=== PATIENT | female | born 1990 | race Caucasian/White ===

== ENCOUNTER 2016-12-02 17:53 | Emergency (ER) | payer MEDICAID ==
[2016-12-02 19:30] LABS: BASOPHIL % 0.2 % (0-2)
[2016-12-02 19:31] LABS: PLATELET COUNT 128 x10^3mcL (130-400); RED CELL DISTRIBUTION WIDTH 15.6 % (11.5-14.5)
[2016-12-02 20:12] VITALS: BP 108/64
== END 2016-12-02 20:12 | disposition left against medical advice (07) ==
LOC: ED 17:53
PROVIDERS: Emergency Medicine
DX: N93.9 Abnormal uterine and vaginal bleeding, unspecified (principal); N91.2 Amenorrhea, unspecified; K80.20 Calculus of gallbladder without cholecystitis without obstruction; R94.5 Abnormal results of liver function studies

== ENCOUNTER 2018-05-04 00:46 | Emergency (ER) | payer MEDICAID ==
[~2018-05-04] VITALS: Ht 160 cm; Wt 62.6 kg
[2018-05-04 00:55] VITALS: Ht 160 cm; Wt 62.6 kg
[2018-05-04 03:49] VITALS: BP 104/65
== END 2018-05-04 03:49 | disposition home or self-care (01) ==
LOC: ED 00:46
DX: G43.909 Migraine, unspecified, not intractable, without status migrainosus (principal); R20.2 Paresthesia of skin; G51.0 Bell's palsy; Z97.5 Presence of (intrauterine) contraceptive device

== ENCOUNTER 2018-08-30 13:04 | Emergency (ER) | payer MEDICAID ==
[~2018-08-30] VITALS: Ht 160 cm; Wt 64.9 kg
[2018-08-30 13:18] VITALS: BP 111/61; Ht 160 cm; Wt 64.9 kg
[2018-08-30 14:36] LABS: CALCIUM 9.2 mg/dL (8.5-10.1); CARBON DIOXIDE 26.3 mmol/L (21-32); CHLORIDE SERUM 102 mmol/L (98-107); CREATININE SERUM 0.6 mg/dL (0.6-1.0); GFR1 > 60 mL/min; GLUCOSE SERUM 80 mg/dL (74-106); POTASSIUM SERUM 4.1 mmol/L (3.5-5.1); SODIUM SERUM 138 mmol/L (136-145)
== END 2018-08-30 15:03 | disposition home or self-care (01) ==
LOC: ED 13:04
PROVIDERS: Emergency Medicine
DX: G44.209 Tension-type headache, unspecified, not intractable (principal); G51.0 Bell's palsy; F17.200 Nicotine dependence, unspecified, uncomplicated; Z97.5 Presence of (intrauterine) contraceptive device
CPT/HCPCS: 99406

== ENCOUNTER 2018-09-11 19:32 | Emergency (ER) | payer MEDICAID ==
[~2018-09-11] VITALS: Ht 160 cm; Wt 64.9 kg
[2018-09-11 19:38] VITALS: BP 112/62; Ht 160 cm; Wt 64.9 kg
== END 2018-09-11 21:33 | disposition home or self-care (01) ==
LOC: ED 19:32
DX: J40 Bronchitis, not specified as acute or chronic (principal); Z98.890 Other specified postprocedural states

== ENCOUNTER 2019-02-09 23:57 | Emergency (ER) | payer MEDICAID ==
[~2019-02-09] VITALS: Ht 160 cm; Wt 67.6 kg
[2019-02-10 00:07] VITALS: Ht 160 cm; Wt 67.6 kg
[2019-02-10 01:38] VITALS: BP 104/70
== END 2019-02-10 01:38 | disposition home or self-care (01) ==
LOC: ED 23:57
DX: R06.02 Shortness of breath (principal); F15.10 Other stimulant abuse, uncomplicated; Z98.890 Other specified postprocedural states

== ENCOUNTER 2019-07-25 06:48 | Emergency (ER) | payer MEDICAID ==
[~2019-07-25] VITALS: Ht 160 cm; Wt 70.8 kg
[2019-07-25 06:49] VITALS: Ht 160 cm; Wt 70.8 kg
[2019-07-25 07:22] LABS: BASOPHIL % 0.1 % (0-2); PLATELET COUNT 247 x10^3mcL (130-400)
[2019-07-25 07:25] LABS: RED CELL DISTRIBUTION WIDTH 15.5 % (11.5-14.5)
[2019-07-25 07:31] LABS: CALCIUM 8.8 mg/dL (8.5-10.1); CARBON DIOXIDE 25.9 mmol/L (21-32); CHLORIDE SERUM 101 mmol/L (98-107); CREATININE SERUM 0.6 mg/dL (0.6-1.0); GFR1 > 60 mL/min; GLUCOSE SERUM 100 mg/dL (74-106); POTASSIUM SERUM 3.8 mmol/L (3.5-5.1); SODIUM SERUM 135 mmol/L (136-145)
[2019-07-25 07:36] LABS: ALBUMIN 3.7 g/dL (3.4-5.0); ALKALINE PHOSPHATASE 84 U/L (46-116); ALT/SGPT 23 U/L (14-59); AST/SGOT 15 U/L (15-37); BILIRUBIN TOTAL 0.3 mg/dL (0.20-1.00); TOTAL PROTEIN, SERUM 7.8 g/dL (6.4-8.2)
[2019-07-25 09:38] VITALS: BP 99/69
== END 2019-07-25 09:38 | disposition home or self-care (01) ==
LOC: ED 06:48
PROVIDERS: Emergency Medicine
DX: R10.31 Right lower quadrant pain (principal); Z98.890 Other specified postprocedural states
CPT/HCPCS: J1885; J7030

== ENCOUNTER 2020-01-05 16:04 | Inpatient (IN) | payer MEDICAID ==
[~2020-01-05] VITALS: Ht 160 cm; Wt 74.1 kg
[2020-01-05 16:17] VITALS: Ht 160 cm; Wt 74.1 kg
[2020-01-05 16:58] LABS: BASOPHIL % 0.3 % (0-2); PLATELET COUNT 252 x10^3mcL (130-400); RED CELL DISTRIBUTION WIDTH 16.4 % (11.5-14.5)
[2020-01-05 17:47] LABS: ERYTHROCYTE SED RATE 46 mm/hr (0-20)
[2020-01-05 18:36] LABS: C REACTIVE PROTEIN 7.4 mg/dL (<=0.9); CALCIUM 8.4 mg/dL (8.5-10.1); CARBON DIOXIDE 25.3 mmol/L (21-32); CHLORIDE SERUM 100 mmol/L (98-107); CREATININE SERUM 0.8 mg/dL (0.6-1.0); GFR1 > 60 mL/min; GLUCOSE SERUM 99 mg/dL (74-106); POTASSIUM SERUM 3.5 mmol/L (3.5-5.1); SODIUM SERUM 136 mmol/L (136-145)
[2020-01-05 20:05] VITALS: BP 99/63
[2020-01-05 21:54] LABS: CHOLESTEROL/HDL RATIO 2.6
[2020-01-06 02:19] VITALS: BP 100/58
[2020-01-06 04:59] VITALS: BP 90/49
[2020-01-06 08:11] VITALS: BP 110/69
[2020-01-06 08:52] LABS: BASOPHIL % 0.4 % (0-2); PLATELET COUNT 200 x10^3mcL (130-400)
[2020-01-06 09:29] LABS: RED CELL DISTRIBUTION WIDTH 16.2 % (11.5-14.5)
[2020-01-06 10:04] LABS: CALCIUM 7.7 mg/dL (8.5-10.1); CARBON DIOXIDE 22.7 mmol/L (21-32); CHLORIDE SERUM 101 mmol/L (98-107); CREATININE SERUM 0.6 mg/dL (0.6-1.0); GFR1 > 60 mL/min; GLUCOSE SERUM 71 mg/dL (74-106); MAGNESIUM 2.2 mg/dL (1.8-2.4); PHOSPHOROUS 2.3 mg/dL (2.5-4.9); POTASSIUM SERUM 3.6 mmol/L (3.5-5.1); SODIUM SERUM 135 mmol/L (136-145)
[2020-01-06 11:57] VITALS: BP 95/60
[2020-01-06 16:13] VITALS: BP 91/59
[2020-01-06] MEDS ORDERED: KEFLEX500 M1 PO (16:46)
[2020-01-06] MEDS ORDERED: ULTRAM50 MG PO (16:47)
== END 2020-01-06 19:00 | disposition left against medical advice (07) | DRG 720 ==
LOC: ED 16:04 → DU 18:41
PROVIDERS: Emergency Medicine; ADMIT Family Medicine; ATTEND Family Medicine
DX: A41.9 Sepsis, unspecified organism (principal); D64.9 Anemia, unspecified; L03.317 Cellulitis of buttock; Z53.29 Procedure and treatment not carried out because of patient's decision for other reasons; L02.31 Cutaneous abscess of buttock
CPT/HCPCS: G0378; J1885; J2270; J2405; J2543; J3490; Q0092; Q9967

== ENCOUNTER 2020-06-13 00:02 | Emergency (ER) | payer MEDICAID ==
[~2020-06-13] VITALS: Ht 160 cm; Wt 73.0 kg
[~2020-06-13 00:02] MED LIST: KEFLEX500 M1 PO; ULTRAM50 MG PO
[2020-06-13 00:10] VITALS: Ht 160 cm; Wt 73.0 kg
[2020-06-13 01:19] LABS: microscopic required? YES; urine erythrocyte 1+ (NEGATIVE)
[2020-06-13 02:45] VITALS: BP 113/71
[2020-06-14 10:07] LABS: RAPID PLASMA REAGIN Reactive (Non Reactive)
== END 2020-06-13 02:45 | disposition home or self-care (01) ==
LOC: ED 00:02
PROVIDERS: Emergency Medicine
DX: N39.0 Urinary tract infection, site not specified (principal); Z98.890 Other specified postprocedural states
CPT/HCPCS: 87491; 87591; J0696

== ENCOUNTER 2020-07-27 20:10 | Emergency (ER) | payer MEDICAID | END 2020-07-27 20:55 | disposition left against medical advice (07) | LOC: ED 20:10 | DX: Z53.21 Procedure and treatment not carried out due to patient leaving prior to being seen by health care provider (principal) ==